=== PATIENT | male | born 1935 | race Caucasian/White ===

== ENCOUNTER → 2017-04-27 | Day surgery (SDC) | payer OTHER ==
[~2017-04-27] MED LIST: LACTATED RINGER'S 1000 ML INJ 1,000 ML ONE; LIDOCAINE 2%/EPINEPHrine PF 1:200,000 20ML SDV ONE; ONDANSETRON HCL 4 MG/2 ML VIAL IV PUSH ONE; PROPOFOL 200 MG/20 ML AMP IV ONE; VANCOMYCIN HCL 1000 MG VIAL ONE; ceFAZolin INJ 1,000 MG VIAL ONE
--- NOTE | 2017-05-02 05:26 | MP ---
cc: TERRY MCDOWELL M.D. DATE OF PROCEDURE 04/27/2017 PROCEDURE Excision of 3 x 3-cm sebaceous cyst left posterior base of neck. PREOPERATIVE DIAGNOSIS Enlarging sebaceous cyst left posterior base of neck. POSTOPERATIVE DIAGNOSIS Enlarging sebaceous cyst left posterior base of neck. ANESTHESIA LMA. SURGEON MD Jeremy ESTIMATED BLOOD LOSS Less than 20 mL. FLUIDS 850 mL crystalloid COMPLICATIONS None. DRAINS None. SPECIMEN Sebaceous cyst to pathology. PROCEDURE The patient was seen in the holding area and the area in question initialed by the undersigned and confirmed by the patient. He was taken to the operating room and placed on the operating table in the supine position. After laryngeal mask anesthesia was instituted, the patient was placed in the right lateral decubitus position on a beanbag and the neck prepped and draped. Time-out was taken confirming the correct patient site and procedure to be performed. The skin and subcutaneous tissue was infiltrated with local anesthetic and an elliptical incision was made including the skin port that communicated with the lesion. Sharp dissection was accomplished to get around the entire cyst. This cyst was removed intact without any spillage of contents. After passing the specimen off the table, the wound was reinspected and made meticulously hemostatic with electrocautery. The wound was closed with interrupted 3-0 Vicryl suture and the skin dressed with Steri-Strips. The patient was extubated and taken back to the recovery room in stable condition. He tolerated the procedure well. MD ARACELIS Wells/CAROLINE /11:36 PM /5:17 AM
== END | disposition home or self-care (01) ==
LOC: ESDC 11:45
PROVIDERS: ATTEND Surgery Trauma Surgery
DX: L72.3 Sebaceous cyst (principal)
CPT/HCPCS: 00300; 11423; 88304; J0690; J2405; J3010; J3370; J7120